=== PATIENT | female | born 1995 | race Caucasian/White ===

== ENCOUNTER 2017-03-22 14:44 | Emergency (ER) | payer OTHER ==
[~2017-03-22] VITALS: Wt 86.0 kg
[~2017-03-22 14:44] MED LIST: FAMO-96 PO; HYDR-3498 PO; OMEP20CA16 PO; ONDA4TAB14 PO; ONDA4TAB35 PO; ONDA4TAB8 PO
[2017-03-22] MEDS ORDERED: SOD CHLORIDE 0.9% 1,000 ML IV STA (15:48)
[2017-03-22] MEDS ORDERED: ONDANSETRON 4 MG INJ IV STA (15:48)
[2017-03-22] MEDS ORDERED: KETOROLAC 30 MG INJ IV STA (15:48)
[2017-03-22] MEDS ORDERED: PANTOPRAZOLE 40 MG INJ IV ONE (16:00)
[2017-03-22 16:16] LABS: BASOPHILS % 0.3 % (0.0-2.0); EOSINOPHILS # 0.1 10^3/ul (0.0-0.5); EOSINOPHILS % 0.6 % (0.0-7.0); HEMATOCRIT 43.2 % (37.0-47.0); HEMOGLOBIN 14.4 g/dl (12.0-16.0); LYMPHOCYTES # 1.7 10^3/ul (0.8-2.9); MEAN CORPUSCULAR HEMOGLOBIN 30.5 pg (29.0-33.0); MEAN CORPUSCULAR HGB CONC 33.3 g/dl (32.0-37.0); MEAN CORPUSCULAR VOLUME 91.5 fl (82.0-101.0); MEAN PLATELET VOLUME 10.1 fl (7.4-10.4); MONOCYTE # 0.6 10^3/ul (0.3-0.9); MONOCYTES % 5.8 % (0.0-11.0); NEUTROPHIL # 8.2 10^3/ul (1.6-7.5); NEUTROPHILS % 76.9 % (39.0-77.0); PLATELET COUNT 311 10^3/UL (140-415); RED BLOOD COUNT 4.72 10^6/ul (4.20-5.40); RED CELL DISTRIBUTION WIDTH 12.6 % (11.5-14.5); WHITE BLOOD COUNT 10.6 10^3/ul (4.8-10.8)
--- NOTE | 2017-03-22 16:17 | ERD ---
ER Documentation Chief Complaint Date/Time DATE: 03/22/17 TIME: 16:09 Chief Complaint ABD PAIN X 1 WEEK HPI This 21-year-old female presents to emergency department today for nausea, vomiting, hemoptysis, and epigastric pain. Patient reports chronic GERD symptoms with poor control and poor follow-up. Patient reports that she is here every 6-8 weeks for treatment, has seen her primary care physician once started on Pepcid patient reports that medication did not help. Patient reports that she has dramatically changed her diet, she is frustrated in room with her mother concerned related to having blood in her vomit this morning. Patient denies any dizziness, weakness, fatigue, chest pain, shortness of breath , or rectal bleeding. Patient past medical history includes gallstones. Patient denies any right upper quadrant tenderness today, any dysuria or back pain. ROS All systems reviewed and are negative except as per history of present illness. Medications Home Meds Active Scripts Ondansetron Hcl* (Zofran*) 4 Mg Tablet, 4 MG PO Q6H for NAUSEA AND/OR VOMITING, #30 TAB Prov:TITO PRITCHARD PA-C 08/24/16 Famotidine* (Pepcid*) 20 Mg Tablet, 20 MG PO BID for 14 Days, TAB Prov:TITO PRITCHARD PA-C 08/24/16 Ondansetron (Ondansetron Odt) 4 Mg Tab.rapdis, 4 MG PO BID Y for NAUSEA AND/OR VOMITING for 5 Days, #10 TAB 0 Refills Prov:RICKI REDMOND PA-C 06/16/16 Omeprazole* (Omeprazole*) 20 Mg Capsule.dr, 20 MG PO BID for 15 Days, #30 TAB 0 Refills Prov:RICKI REDMOND PA-C 06/16/16 Ondansetron Hcl* (Zofran*) 4 Mg Tablet, 4 MG PO Q6H for NAUSEA AND/OR VOMITING, #30 TAB Prov:ELIEZER SAVAGE PA-C 03/15/16 Ondansetron Hcl* (Zofran* ODT) 4 mg -ODT Tab.disper, 4 MG PO Q6 Y for NAUSEA AND /OR VOMITING, #10 TAB Prov:KALEIGH RUTLEDGE PA-C 11/21/15 Hydrocodone Bit-Acetaminophen* ([place]*) 5-325 Mg Tab, 1 TAB PO Q6 Y for PAIN, # 10 TAB Prov:KALEIGH RUTLEDGE PA-C 11/21/15 Allergies Allergies: Coded Allergies: amoxicillin (Verified Allergy, Severe, 08/24/16) PMhx/Soc History of Surgery: No Anesthesia Reaction: No Hx Neurological Disorder: No Hx Respiratory Disorders: No Hx Cardiac Disorders: No Hx Psychiatric Problems: No Hx Miscellaneous Medical Probl: Yes (GALLSTONES, GERD) Hx Alcohol Use: No Hx Substance Use: No Hx Tobacco Use: No Smoking Status: Never smoker Physical Exam Vitals Vital Signs Date Time Temp Pulse Resp B/P Pulse Ox O2 Delivery O2 Flow Rate FiO2 03/22/17 14:47 98.0 78 18 124/65 99 Vitals stable, triage notes reviewed Physical Exam Const: Well-appearing, well-hydrated, well-nourished, no acute distress Head: Atraumatic Eyes: Normal Conjunctiva, PERRLA, EOM ENT: Normal External Ears, Nose and Mouth mucous membranes moist. Neck: Resp: Chest rise and fall symmetrically, respirations even and unlabored, no respiratory Cardio: Abd: Abdomen is obese, symmetric, palpable epigastric tenderness, no negative Snell sign, negative McBurney's point, negative CVA tenderness. Skin: Back: No midline or flank tenderness Ext: Neur: Awake and alert Psych: Normal Mood and Affect Result Diagram: 03/22/17 1605 03/22/17 1605 Results 24 hrs Laboratory Tests Test 03/22/17 16:00 03/22/17 16:05 Urine Color YELLOW Urine Clarity SLIGHTLY CLOUDY Urine pH 5.0 Urine Specific [place] 1.019 Urine Ketones NEGATIVEmg/dL Urine Nitrite NEGATIVEmg/dL Urine Bilirubin NEGATIVEmg/dL Urine Urobilinogen NEGATIVEmg/dL Urine Leukocyte Esterase NEGATIVELeu/ul Urine Microscopic RBC 1/HPF Urine Microscopic WBC 2/HPF Urine Squamous Epithelial Cells FEW/HPF Urine Bacteria FEW/HPF Urine Hemoglobin 2+mg/dL Urine Glucose NEGATIVEmg/dL Urine Total Protein NEGATIVEmg/dl White Blood Count 10.610^3/ul Red Blood Count 4.7210^6/ul Hemoglobin 14.4g/dl Hematocrit 43.2% Mean Corpuscular Volume 91.5fl Mean Corpuscular Hemoglobin 30.5pg Mean Corpuscular Hemoglobin Concent 33.3g/dl Red Cell Distribution Width 12.6% Platelet Count 58147^3/UL Mean Platelet Volume 10.1fl Neutrophils % 76.9% Lymphocytes % 16.0% Monocytes % 5.8% Eosinophils % 0.6% Basophils % 0.3% Nucleated Red Blood Cells % 0.0/100WBC Neutrophils # 8.210^3/ul Lymphocytes # 1.710^3/ul Monocytes # 0.610^3/ul Eosinophils # 0.110^3/ul Basophils # 0.010^3/ul Nucleated Red Blood Cells # 0.010^3/ul Sodium Level 144mmol/L Potassium Level 4.5mmol/L Chloride Level 107mmol/L Carbon Dioxide Level 21mmol/L Anion Gap 21 Blood Urea Nitrogen 12mg/dl Creatinine 0.80mg/dl Glucose Level 108mg/dl Calcium Level 10.1mg/dl Total Bilirubin 0.2mg/dl Direct Bilirubin 0.00mg/dl Indirect Bilirubin 0.2mg/dl Aspartate Amino Transf (AST/SGOT) 15IU/L Alanine Aminotransferase (ALT/SGPT) 29IU/L Alkaline Phosphatase 40IU/L Total Protein 8.3g/dl Albumin 4.6g/dl Globulin 3.70g/dl Albumin/Globulin Ratio 1.24 Lipase 56U/L Current Medications Medications (Trade) Dose Ordered Sig/Ana Route PRN Reason Start Time Stop Time Status Last Admin Dose Admin Sodium Chloride (NS) 1,000 ml @ 1,000 mls/hr Q1H STAT IV 03/22/17 15:48 03/22/17 16:47 DC 03/22/17 16:22 Ondansetron HCl (Zofran Inj) 4 mg ONCE STAT IV 03/22/17 15:48 03/22/17 15:54 DC 03/22/17 16:23 Ketorolac Tromethamine (Toradol) 15 mg ONCE STAT IV 03/22/17 15:48 03/22/17 15:54 DC 03/22/17 16:22 Pantoprazole (Protonix Iv) 40 mg ONCE ONCE IV 03/22/17 16:00 03/22/17 16:01 DC 03/22/17 16:22 Interpretation text CBC shows no evidence of hemorrhage or infection Chemistry shows no evidence of significant electrolyte abnormalities or renal insufficiency Liver function tests shows no evidence of acute biliary or hepatic dysfunction Lipase shows no evidence of acute pancreatitis . Procedures/MDM This 21-year-old female reports to emergency department for exacerbation of chronic gastroesophageal reflux disease with poor medical management and follow- up. Patient reports seeing vomit in her blood today, states she currently is on no medication but has been on Pepcid once states it did not work. Low suspicion for Shankar's esophagitis, small bowel obstruction, or GI bleed. Exam findings consistent with a nonacute abdomen, patient treated with routine laboratory testing, liter of normal saline, Zofran, Toradol, IV Protonix, teaching provided as to a patient approach to management of symptoms patient to follow-up with primary care physician for referral to health science writer, encouraged not to get frustrated but to continue treatment as outpatient, do not stop any medication, keep all agreements with physician continue dietary lifestyle and exercise changes. Return to emergency department for chest pain, shortness of breath, rectal bleeding or continued hemoptysis Laboratory testing negative for evidence of pancreatitis, hepatitis, infectious process, acute blood loss or anemia. Patient reports improvement after interventions will be discharged home with short dose of [place] for pain, Protonix, and Zantac. Instructed to follow-up with primary care discussion as discussed, I spent 15 minutes explaining importance of continued follow-up in working with her primary care physician for best practice treatment related to GERD symptoms also explained possible complications such as Shankar's esophagitis with untreated gastroesophageal reflux disease. I feel the patient is stable for discharge at this time. I have discussed results, examination findings, the treatment plan with the patient and family present prior to discharge. Indications for emergent reevaluation, side effects of medication were also discussed. All questions were answered. Patient verbalizes understanding and agrees with plan of care. Departure Diagnosis: Primary Impression: Chronic GERD Condition: Good Patient Instructions: Gerd (Adult), Medications for GERD, What Is GERD? Referrals: VIRGINIA RAMIREZ MD,MARY ORDONEZ,BRODERICK GIRON,JIL BAINS,MICHELLE CHIN,AMARILIS VARGAS,KRISHNA BARBOSA,STEFANIA MCDONOUGH,KAROLYN GARCIA,FEMI LARSON,CARRINGTON DIGGS MD, M.D. Additional Instructions: Thank you for for coming to [facility] for your care today. Please ask your nurse or provider if you have questions about your care today and do not leave until all your questions have been answered. Please use any medications given as directed and follow-up with your doctor (or the doctor you were referred to) in the next 2-3 days. If you do not have a primary care doctor you may follow up at the [facility] (listed below). You may also use motrin and tylenol as needed for fever and/or pain unless instructed otherwise by your provider or nurse. Indications for more urgent follow-up have been discussed, but you may return to the Emergency Department at ANY time for any worrisome or worsening symptoms. If you have abdominal pain, please know that no test or exam you received is perfect and you should follow up within 8 hours for continued pain. If you had any imaging studies today, such as an X-Ray or CT Scan, these studies will be reviewed later by a radiologist. You will be called if there are important findings that were not identified today, so make sure the contact information you provided at registration is correct. If you received any narcotic pain control medicine today, such as Vicodin, Morphine or Dilaudid, your coordination and judgment may be affected for a number of hours. Please do not drive or operate heavy machinery, and you may want someone to assist you at home. If you were given a prescription for narcotic medication, be aware that it is very addictive- use sparingly and only if necessary. GEOVANNY THOMPSON Mar 22, 2017 16:17
[2017-03-22 16:44] LABS: ADD UMIC YES; UR ASCORBIC ACID NEGATIVE (NEGATIVE); UR BACTERIA FEW /HPF (NONE SEEN); UR BILIRUBIN (Dip) NEGATIVE (NEGATIVE); UR BLOOD (Dip) 2+ mg/dL (NEGATIVE); UR CLARITY SLIGHTLY CLOUDY (CLEAR); UR COLOR YELLOW (YELLOW); UR GLUCOSE (Dip) NEGATIVE (NEGATIVE); UR KETONES (Dip) NEGATIVE (NEGATIVE); UR LEUKOCYTE ESTERASE (Dip) NEGATIVE Leu/ul (NEGATIVE); UR NITRITE (Dip) NEGATIVE (NEGATIVE); UR RBC 1 /HPF (0-5); UR SPECIFIC GRAVITY (Dip) 1.019 (1.003-1.030); UR SQUAMOUS EPITHELIAL CELL FEW /HPF (FEW); UR TOTAL PROTEIN (Dip) NEGATIVE (NEGATIVE); UR UROBILINOGEN (Dip) NEGATIVE (NEGATIVE)
[2017-03-22 16:46] LABS: ALBUMIN 4.6 g/dl (3.3-4.9); ALBUMIN/GLOBULIN RATIO 1.24; BILIRUBIN,INDIRECT 0.2 mg/dl (0-1.1); BILIRUBIN,TOTAL 0.2 mg/dl (0.2-1.3); CALCIUM 10.1 mg/dl (8.4-10.2); CREATININE 0.8 mg/dl (0.44-1.00); POTASSIUM 4.5 mmol/L (3.5-5.1); TOTAL PROTEIN 8.3 g/dl (6.1-8.1)
[2017-03-22] MEDS ORDERED: HYDR-906 PO (17:58)
[2017-03-22] MEDS ORDERED: PANT40TA3 PO (17:58)
[2017-03-22] MEDS ORDERED: RANI150T9 PO (17:59)
== END 2017-03-22 18:32 | disposition home or self-care (01) ==
LOC: FTE 14:44
DX: K21.9 Gastro-esophageal reflux disease without esophagitis (principal); R11.2 Nausea with vomiting, unspecified
CPT/HCPCS: 80053; 81001; 83690; 85025; 96361; 96374; 96375; C9113; J1885; J2405; J7030; Z7502

== ENCOUNTER 2017-11-05 21:30 | Emergency (ER) | END 2017-11-06 00:25 | disposition home or self-care (01) ==

== ENCOUNTER 2018-12-16 05:07 | Emergency (ER) | payer OTHER ==
[~2018-12-16] VITALS: Ht 160 cm; Wt 82.2 kg
[~2018-12-16 05:07] MED LIST changes: +HYDR-4011 PO; +PANT40TA3 PO; +RANI150T35 PO
[2018-12-16 05:09] VITALS: Ht 160 cm; Wt 82.2 kg
[2018-12-16] MEDS ORDERED: ONDANSETRON 4 MG INJ IV STA (05:29)
[2018-12-16] MEDS ORDERED: morphine 4 MG/ML VIAL IV STA (05:29)
[2018-12-16] MEDS ORDERED: SOD CHLORIDE 0.9% 1,000 ML IV STA (05:29)
[2018-12-16] MEDS ORDERED: LIDOCAINE/MYLANTA 40 ML BTL PO STA (06:25)
--- NOTE | 2018-12-16 06:33 | ERD ---
ER Documentation Chief Complaint Chief Complaint Pt reports vomiting x 2 hours, latband sx last year HPI 23-year-old female with no reported past medical history, surgical history of lap band in July 2017, who presents with persistent nausea and vomiting and epigastric abdominal pain. Symptoms started about 2-3 hours ago. Vomiting is nonbilious nonbloody. Also with 2 episodes of loose stools. Reports relatively good health prior to episode, eating her normal meals. States she has followed up with her surgeon and that her lap band surgery was without complications. Previously seen in ED last year around December for similar symptoms. Got GI cocktail as well as symptomatic treatment with improvement in symptoms. She ot herwise denies chest pain, shortness of breath, fevers chills, urinary symptoms. ROS All systems reviewed and are negative except as per history of present illness. Medications Home Meds Active Scripts Magaldrate/Simethicone* (Mag-Al Plus Suspension*) 30 Ml Oral.susp, 30 ML PO Q6H PRN for GASTROINTESTINAL UPSET for 7 Days, ML Prov:TEJAS MCCRAY PA-C 12/16/18 Hydrocodone/Acetaminophen ([place] 5-325 Tablet) 1 Each Tablet, 1 EACH PO Q6 PRN for PAIN LEVEL 6-10, #7 TAB Prov:TEJAS MCCRAY PA-C 12/16/18 Famotidine* (Pepcid*) 20 Mg Tablet, 20 MG PO BID for 4 Days, TAB Prov:TEJAS MCCRAY PA-C 12/16/18 Metoclopramide* (Reglan*) 10 Mg Tablet, 10 MG PO Q6 PRN for NAUSEA AND/OR VOM ITING, #10 TAB Prov:TEJAS MCCRAY-C 12/16/18 Ondansetron Hcl* (Zofran*) 4 Mg Tablet, 4 MG PO Q6H for NAUSEA AND/OR VOMITING, #30 TAB Prov:STACEY,KARMA C 11/05/17 Hydrocodone/Acetaminophen ([place] 5-325 Tablet) 1 Each Tablet, 1 TAB PO Q6H PRN for PAIN, #15 TAB Prov:STACEY,KARMA C 11/05/17 Ranitidine Hcl* (Zantac*) 150 Mg Tablet, 150 MG PO BID PRN for EPIGASTRIC PAIN, #30 TAB Prov:JAY,GEOVANNY 03/22/17 Pantoprazole* (Protonix*) 40 Mg Tablet.dr, 40 MG PO DAILY, #20 TAB Prov:JAY,GEOVANNY 03/22/17 Hydrocodone/Acetaminophen ([place] 5-325 Tablet) 1 Each Tablet, 1 TAB PO Q6H PRN for PAIN, #7 TAB Prov:JAY,GEOVANNY 03/22/17 Ondansetron Hcl* (Zofran*) 4 Mg Tablet, 4 MG PO Q6H for NAUSEA AND/OR VOMITING, #30 TAB Prov:TITO PRITCHARD PA-C 08/24/16 Famotidine* (Pepcid*) 20 Mg Tablet, 20 MG PO BID for 14 Days, TAB Prov:TITO PRITCHARD PA-C 08/24/16 Ondansetron (Ondansetron Odt) 4 Mg Tab.rapdis, 4 MG PO BID PRN for NAUSEA AND/OR VOMITING for 5 Days, #10 TAB 0 Refills Prov:RICKI REDMOND PA-C 06/16/16 Omeprazole* (Omeprazole*) 20 Mg Capsule., 20 MG PO BID for 15 Days, #30 TAB 0 Refills Prov:RICKI REDMOND PA-C 06/16/16 Ondansetron Hcl* (Zofran*) 4 Mg Tablet, 4 MG PO Q6H for NAUSEA AND/OR VOMITING, #30 TAB Prov:ELIEZER SAVAGE PA-C 03/15/16 Ondansetron Hcl* (Zofran* ODT) 4 mg -ODT Tab.disper, 4 MG PO Q6 PRN for NAUSEA AND/OR VOMITING, #10 TAB Prov:KALEIGH RUTLEDGE PA-C 11/21/15 Hydrocodone Bit-Acetaminophen* ([place]*) 5-325 Mg Tab, 1 TAB PO Q6 PRN for PAIN, #10 TAB Prov:KALEIGH RUTLEDGE PA-C 11/21/15 Allergies Allergies: Coded Allergies: amoxicillin (Verified Allergy, Severe, 08/24/16) Uncoded Allergies: CILLINS (Allergy, Unknown, 12/16/18) PMhx/Soc History of Surgery: Yes (LAP BAND SX) Anesthesia Reaction: No Hx Neurological Disorder: No Hx Respiratory Disorders: No Hx Cardiac Disorders: No Hx Psychiatric Problems: No Hx Miscellaneous Medical Probl: No Hx Alcohol Use: No Hx Substance Use: No Hx Tobacco Use: No Smoking Status: Never smoker Physical Exam Vitals Vital Signs Date Temp Pulse Resp B/P (MAP) Pulse Ox O2 O2 Flow FiO2 Time Delivery Rate 12/16/18 84 18 98/57 (71) 99 Room Air 08:25 12/16/18 99.1 65 16 122/70 100 05:09 (87) Physical Exam I have reviewed the triage vital signs. Const: Well nourished, well developed, appears stated age Eyes: PERRL, no conjunctival injection HENT: NCAT, Neck supple without meningismus CV: RRR, Warm, well-perfused extremities RESP: CTAB, Unlabored respiratory effort GI: soft, tender to deep palpation to epigastrium, non-distended, no masses, no rebound or guarding MSK: No gross deformities appreciated Skin: Warm, dry. No rashes Neuro: grossly non focal Psych: Appropriate mood and affect. Result Diagram: 12/16/18 0549 12/16/18 0549 Results 24 hrs Laboratory Tests Test 12/16/18 05:49 White Blood Count 12.8 10^3/ul Red Blood Count 4.40 10^6/ul Hemoglobin 13.7 g/dl Hematocrit 40.5 % Mean Corpuscular Volume 92.0 fl Mean Corpuscular Hemoglobin 31.1 pg Mean Corpuscular Hemoglobin Concent 33.8 g/dl Red Cell Distribution Width 12.7 % Platelet Count 299 10^3/UL Mean Platelet Volume 10.2 fl Immature Granulocytes % 0.200 % Neutrophils % 69.1 % Lymphocytes % 22.8 % Monocytes % 6.6 % Eosinophils % 0.9 % Basophils % 0.4 % Nucleated Red Blood Cells % 0.0 /100WBC Immature Granulocytes # 0.030 10^3/ul Neutrophils # 8.9 10^3/ul Lymphocytes # 2.9 10^3/ul Monocytes # 0.9 10^3/ul Eosinophils # 0.1 10^3/ul Basophils # 0.1 10^3/ul Nucleated Red Blood Cells # 0.0 10^3/ul Urine Color YELLOW Urine Clarity CLOUDY Urine pH 5.0 Urine Specific [place] 1.023 Urine Ketones TRACE mg/dL Urine Nitrite NEGATIVE mg/dL Urine Bilirubin NEGATIVE mg/dL Urine Urobilinogen 1+ mg/dL Urine Leukocyte Esterase NEGATIVE [place]/ul Urine Microscopic RBC 4 /HPF Urine Microscopic WBC 11 /HPF Urine Squamous Epithelial Cells FEW /HPF Urine Bacteria MODERATE /HPF Urine Mucus MANY /HPF Urine Hemoglobin 1+ mg/dL Urine Glucose NEGATIVE mg/dL Urine Total Protein NEGATIVE mg/dl Sodium Level 141 mmol/L Potassium Level 3.8 mmol/L Chloride Level 108 mmol/L Carbon Dioxide Level 19 mmol/L Anion Gap 14 Blood Urea Nitrogen 11 mg/dl Creatinine 0.66 mg/dl Est Glomerular Filtrat Rate mL/min > 60 mL/min Glucose Level 117 mg/dl Calcium Level 10.0 mg/dl Total Bilirubin 0.3 mg/dl Direct Bilirubin 0.00 mg/dl Indirect Bilirubin 0.3 mg/dl Aspartate Amino Transf (AST/SGOT) 19 IU/L Alanine Aminotransferase (ALT/SGPT) 17 IU/L Alkaline Phosphatase 37 IU/L Total Protein 8.1 g/dl Albumin 4.2 g/dl Globulin 3.90 g/dl Albumin/Globulin Ratio 1.07 Lipase 67 U/L POC Beta HCG, Qualitative NEGATIVE Current Medications Medications Dose Sig/Ana Start Time Status Last (Trade) Ordered Route PRN Stop Time Admin Dose Reason Admin Sodium 1,000 ml @ Q1H STAT 12/16/18 DC 12/16/18 Chloride 1,000 mls/hr IV 05:29 05:56 12/16/18 06:28 Morphine 4 mg ONCE STAT 12/16/18 DC 12/16/18 Sulfate IV 05:29 05:56 (morphine) 12/16/18 05:31 Ondansetron 4 mg ONCE STAT 12/16/18 DC 12/16/18 HCl (Zofran IV 05:29 05:56 Inj) 12/16/18 05:31 40 ml ONCE STAT 12/16/18 DC 12/16/18 Miscellaneous PO 06:25 07:02 Medication 12/16/18 06:41 (Gi Cocktail (2)) Ketorolac 30 mg ONCE STAT 12/16/18 DC Tromethamine IM 07:42 (Toradol) 12/16/18 07:44 10 mg ONCE ONCE 12/16/18 DC 12/16/18 Metoclopramid IV 08:00 07:46 e HCl 12/16/18 08:01 (Reglan) Ketorolac 30 mg ONCE STAT 12/16/18 DC 12/16/18 Tromethamine IV 07:43 07:47 (Toradol) 12/16/18 07:45 Procedures/MDM 23-year-old healthy female status post lap band surgery 07/2017 who presents with persistent nausea and vomiting and epigastric abdominal pain. her abdominal pain of unclear etiology. Their evaluation has not identified a emergent etiology for the abdominal pain. Specifically, given the very benign exam, normal laboratory studies, and lack of significant risk factors, I have a very low suspicion for appendicitis, ischemic bowel, bowel perforation, or any other life threatening disease. ED course: IV fluids, antiemetics, pain control Reassessment: Patient with resolution of symptoms in less than 3 hours in the emergency room with symptomatic treatment Plan: Reglan, encourage p.o. intake, pain control, Mylanta Strict return precautions and PMD follow-up I have discussed with the patient the level of uncertainty with undifferentiated abdominal pain and clearly explained the need to follow-up as noted on the discharge instructions, or return to the Emergency Department immediately if the pain worsens, develops fever, persistent and uncontrollable vomiting, or for any new symptoms or concerns. I discussed with the patient that this presentation today for abdominal pain could represent a significant risk for an acute abdominal process. Although the tests in the ED were essentially normal, there is still a possibility of a process such as appendicitis, diverticulitis, cholecystitis, ulcer, early bowel obstruction, mesenteric ischemia, kidney stone, or even kidney infection which could subsequently cause disability or . DISPOSITION PLAN: We discussed follow up with the patient's primary care doctor within 24 to 48 hours. Patient counseled regarding my diagnostic impression and care plan. Prior to discharge all questions answered. Pt agrees with treatment plan and understands strict return precautions. Precautionary instructions provided including instructions to return to the ER if not improving or for any worsening or changing symptoms or concerns. Departure Diagnosis: Primary Impression: Vomiting and diarrhea Condition: Stable TEJAS MCCRAY PA-C Dec 16, 2018 06:33
[2018-12-16] MEDS ORDERED: KETOROLAC 30 MG INJ IM STA (07:42)
[2018-12-16] MEDS ORDERED: KETOROLAC 30 MG INJ IV STA (07:43)
[2018-12-16] MEDS ORDERED: METOCLOPRAMIDE 10 MG INJ IV ONE (08:00)
[2018-12-16] MEDS ORDERED: FAMO-96 PO (08:23)
[2018-12-16] MEDS ORDERED: HYDR-4011 PO (08:23)
[2018-12-16] MEDS ORDERED: METO10TA92 PO (08:23)
[2018-12-16 08:25] VITALS: BP 98/57; PULSE 84; RESP 18
[2018-12-16] MEDS ORDERED: UDMYL PO (08:46)
== END 2018-12-16 08:29 | disposition home or self-care (01) ==
LOC: FTE 05:07
DX: R11.2 Nausea with vomiting, unspecified (principal); R19.7 Diarrhea, unspecified
CPT/HCPCS: 36415; 76705; 80053; 81001; 81025; 83690; 85025; 96361; 96374; 96375; J1885; J2270; J2405; J2765; J7030; Z7502; Z7610

== ENCOUNTER 2018-12-26 05:02 | Emergency (ER) | payer OTHER ==
[~2018-12-26] VITALS: Ht 154.9 cm; Wt 81.3 kg
[~2018-12-26 05:02] MED LIST changes: +METO10TA92 PO; +UDMYL PO
[2018-12-26 05:05] VITALS: BP 112/68; PULSE 99; RESP 18; Ht 154.9 cm; Wt 81.3 kg
[2018-12-26] MEDS ORDERED: PROM6.2515 PO (05:27)
[2018-12-26] MEDS ORDERED: PSEU-79 PO (05:27)
[2018-12-26] MEDS ORDERED: BENZ-6 PO (05:27)
[2018-12-26] MEDS ORDERED: AZIT250T PO (05:27)
[2018-12-26] MEDS ORDERED: POLY10DR19 RIGHT EYE (05:27)
[2018-12-26] MEDS ORDERED: MED4DP PO (05:27)
--- NOTE | 2018-12-26 05:32 | ERD ---
ER Documentation Chief Complaint Chief Complaint FLU SYMPTOMS X'S 5 DAYS; EYE DISCHARGE STARTED TODAY HPI 23-year-old female presenting with eye discharge and sinus pressure. Patient states she has had this pain for the last few days. She lost her voice today. Nasal congestion with a dry cough. She has some sore throats. No sick contacts. Took last dose of Advil 6 hours ago. Denies medical problems. Allergies to penicillin. Surgical history LAP-BAND. Social history smokes occasionally ROS All systems reviewed and are negative except as per history of present illness. Medications Home Meds Active Scripts Methylprednisolone* (Medrol* DOSE PACK) 4 Mg/Dose-Pack Tab.ds.pk, 4 MG PO . DIRECTED, #1 PACKET Prov:ELIEZER SAVAGE PA-C 12/26/18 Azithromycin* (Zithromax*) 250 Mg Tablet, 250 MG PO .ZPACK DIRECTED, #6 TAB TAKE 500 MG (2 TABS) THE FIRST DAY THEN 250 MG (1 TAB) DAYS 2-5 Prov:ELIEZER SAVAGE PA-C 12/26/18 Promethazine Hcl* (Promethazine Hcl* Syrup) 6.25 Mg/5 Ml Syrup, 6.25 MG PO Q6H PRN for COUGH, #100 ML Prov:ELIEZER SAVAGE PA-C 12/26/18 Benzonatate* (Tessalon [place]*) 100 Mg Capsule, 100 MG PO Q8H PRN for COUGH, #30 CAP Prov:ELIEZER SAVAGE PA-C 12/26/18 Pseudoephedrine Hcl* (Suphedrin*) 30 Mg Tablet, 30 MG PO Q6 PRN for CONGESTION, #30 TAB Prov:ELIEZER SAVAGE PA-C 12/26/18 Polymyxin B Sulfate-TMP* (Polymyxin B-TMP Eye Drops*) 10 Ml Drops, 1 DROP RIGHT EYE QID for 7 Days, EA Prov:ELIEZER SAVAGE PA-C 12/26/18 Magaldrate/Simethicone* (Mag-Al Plus Suspension*) 30 Ml Oral.susp, 30 ML PO Q6H PRN for GASTROINTESTINAL UPSET for 7 Days, ML Prov:TEJAS MCCRAY PA-C 12/16/18 Hydrocodone/Acetaminophen ([place] 5-325 Tablet) 1 Each Tablet, 1 EACH PO Q6 PRN for PAIN LEVEL 6-10, #7 TAB Prov:TEJAS MCCRAY-C 12/16/18 Famotidine* (Pepcid*) 20 Mg Tablet, 20 MG PO BID for 4 Days, TAB Prov:TEJAS MCCRAY PA-C 12/16/18 Metoclopramide* (Reglan*) 10 Mg Tablet, 10 MG PO Q6 PRN for NAUSEA AND/OR VOMITING, #10 TAB Prov:TEJAS MCCRAY PA-C 12/16/18 Ondansetron Hcl* (Zofran*) 4 Mg Tablet, 4 MG PO Q6H for NAUSEA AND/OR VOMITING, #30 TAB Prov:STACEY,KARMA C 11/05/17 Hydrocodone/Acetaminophen ([place] 5-325 Tablet) 1 Each Tablet, 1 TAB PO Q6H PRN for PAIN, #15 TAB Prov:STACEYKARMA C 11/05/17 Ranitidine Hcl* (Zantac*) 150 Mg Tablet, 150 MG PO BID PRN for EPIGASTRIC PAIN, #30 TAB Prov:JAY,GEOVANNY 03/22/17 Pantoprazole* (Protonix*) 40 Mg Tablet.dr, 40 MG PO DAILY, #20 TAB Prov:JAY,GEOVANNY 03/22/17 Hydrocodone/Acetaminophen ([place] 5-325 Tablet) 1 Each Tablet, 1 TAB PO Q6H PRN for PAIN, #7 TAB Prov:JAY,GEOVANNY 03/22/17 Ondansetron Hcl* (Zofran*) 4 Mg Tablet, 4 MG PO Q6H for NAUSEA AND/OR VOMITING, #30 TAB Prov:TITO PRITCHARD-C 08/24/16 Famotidine* (Pepcid*) 20 Mg Tablet, 20 MG PO BID for 14 Days, TAB Prov:TITO PRITCHARD-C 08/24/16 Ondansetron (Ondansetron Odt) 4 Mg Tab.rapdis, 4 MG PO BID PRN for NAUSEA AND/OR VOMITING for 5 Days, #10 TAB 0 Refills Prov:RICKI REDMOND PA-C 06/16/16 Omeprazole* (Omeprazole*) 20 Mg Capsule.dr, 20 MG PO BID for 15 Days, #30 TAB 0 Refills Prov:RICKI REDMOND PA-C 06/16/16 Ondansetron Hcl* (Zofran*) 4 Mg Tablet, 4 MG PO Q6H for NAUSEA AND/OR VOMITING, #30 TAB Prov:ELIEZER SAVAGE PA-C 03/15/16 Ondansetron Hcl* (Zofran* ODT) 4 mg -ODT Tab.disper, 4 MG PO Q6 PRN for NAUSEA AND/OR VOMITING, #10 TAB Prov:KALEIGH RUTLEDGE PA-C 11/21/15 Hydrocodone Bit-Acetaminophen* ([place]*) 5-325 Mg Tab, 1 TAB PO Q6 PRN for PAIN, #10 TAB Prov:KALEIGH RUTLEDGE PA-C 11/21/15 Allergies Allergies: Coded Allergies: amoxicillin (Verified Allergy, Severe, 08/24/16) Uncoded Allergies: CILLINS (Allergy, Unknown, 12/16/18) PMhx/Soc History of Surgery: Yes (LAP BAND SX) Anesthesia Reaction: No Hx Neurological Disorder: No Hx Respiratory Disorders: No Hx Cardiac Disorders: No Hx Psychiatric Problems: No Hx Miscellaneous Medical Probl: No Hx Alcohol Use: No Hx Substance Use: No Hx Tobacco Use: No FmHx Family History: No diabetes, No coronary disease, No other Physical Exam Vitals Vital Signs Date Temp Pulse Resp B/P (MAP) Pulse Ox O2 O2 Flow FiO2 Time Delivery Rate 12/26/18 100.1 99 18 112/68 98 05:05 (83) Physical Exam GENERAL: The patient is well-appearing, well-nourished, in no acute distress HEENT: Atraumatic. Conjunctivae are pink. Pupils equal, round, and reactive to light. There is no scleral icterus mild goopy eye discharge to the right side.. Tympanic membranes clear bilaterally. Oropharynx clear. NECK: C-spine is soft and supple. There is no meningismus. There is no cervical lymphadenopathy. CHEST: Clear to auscultation bilaterally. There are no rales, wheezes or rhonchi. HEART: Regular rate and rhythm. No murmurs, clicks, rubs or gallops. Procedures/MDM MDM: 23-year-old female presenting with bacterial conjunctivitis. Patient also has viral sinusitis. I will write for antibiotics but recommend patient to wait another 3 to 4 days prior to taking. Patient is told symptoms change or worsen to return sooner to the ER. Patient is discharged with strict ER precautions. All questions answered at discharge Departure Diagnosis: Primary Impression: Bacterial conjunctivitis Additional Impression: Viral URI Condition: Stable Patient Instructions: Conjunctivitis, Bacterial, Sinusitis, No Abx Additional Instructions: FOLLOW UP WITH YOUR PRIMARY CARE PHYSICIAN TOMORROW.Return to this facility if you are not improving as expected. ELIEZER SAVAGE PA-C Dec 26, 2018 05:32
== END 2018-12-26 05:42 | disposition home or self-care (01) ==
LOC: FTE 05:02
DX: H10.021 Other mucopurulent conjunctivitis, right eye (principal); J06.9 Acute upper respiratory infection, unspecified
CPT/HCPCS: 99283

== ENCOUNTER 2019-04-21 04:34 | Emergency (ER) | payer OTHER ==
[~2019-04-21] VITALS: Ht 154.9 cm; Wt 82.1 kg
[~2019-04-21 04:34] MED LIST changes: +AZIT250T PO; +BENZ-6 PO; +MED4DP PO; +POLY10DR19 RIGHT EYE; +PROM6.2515 PO; +PSEU-79 PO; +SUCR1TAB56 PO
[2019-04-21 04:49] VITALS: Ht 154.9 cm; Wt 82.1 kg
[2019-04-21] MEDS ORDERED: LIDOCAINE/MYLANTA 40 ML BTL PO STA (05:20)
[2019-04-21] MEDS ORDERED: FAMOTIDINE 20 MG INJ IV STA (05:20)
[2019-04-21] MEDS ORDERED: SOD CHLORIDE 0.9% 1,000 ML IV STA (05:20)
[2019-04-21] MEDS ORDERED: ONDANSETRON 4 MG INJ IV STA ×2 (05:20→07:19)
[2019-04-21] MEDS ORDERED: KETOROLAC 30 MG INJ IV STA ×2 (06:05→06:57)
[2019-04-21] MEDS: SUCRALFATE 1 GM TAB PO ONE ×2 (07:15→07:17)
[2019-04-21 07:36] VITALS: BP 101/62; PULSE 81; RESP 18
== END 2019-04-21 07:37 | disposition home or self-care (01) ==
LOC: FTE 04:34
DX: K21.9 Gastro-esophageal reflux disease without esophagitis (principal)
CPT/HCPCS: 36415; 80053; 81003; 81025; 83690; 85025; 96361; 96374; 96375; 96376; J1885; J2405; J7030; Z7502; Z7610